=== PATIENT | male | born 1995 | race American Indian/Alaskan Native ===

== ENCOUNTER 2020-12-10 13:06 | Emergency (ER) | payer OTHER ==
[2020-12-10 13:31] VITALS: BP 140/71
--- NOTE | 2020-12-10 14:25 | Emergency Department Report ---
ED Laceration HPI - HPI Chief Complaint: Wound/Laceration Stated Complaint: RT ELBOW LAC Time Seen by Provider: 12/10/20 13:18 Occurred When: Today Severity: mild Tetanus Status: Up to Date (2019) Laceration Symptoms: Yes Pain, No Foreign Body Sensation, No Numbness, No Weakness Other History: This is a 25-year-old male nontoxic, well nourished in appearance, no acute signs of distress presents to the ED with c/o of right eyebrow laceration that occurred today after a physical education at work. Patient denies any loss of consciousness. Patient denies any headache. Patient denies decreased sensation or range of motion. Patient stated bleeding is under control. Denies any numbness, tingling, fever, chills, nausea, vomiting, chest pain, shortness of breath, headache or stiff neck. Patient denies any allergies to significant past medical history. Patient is up-to-date with tetanus as of 2019. ED Review of Systems ROS: Stated complaint: RT ELBOW LAC Other details as noted in HPI Constitutional: denies: chills, fever Eyes: denies: eye pain, eye discharge, vision change ENT: denies: ear pain, throat pain Respiratory: denies: cough, shortness of breath, wheezing Cardiovascular: denies: chest pain, palpitations Endocrine: no symptoms reported Gastrointestinal: denies: abdominal pain, nausea, diarrhea Genitourinary: denies: urgency, dysuria Musculoskeletal: denies: back pain, joint swelling, arthralgia Skin: denies: rash, lesions Neurological: denies: headache, weakness, paresthesias Psychiatric: denies: anxiety, depression Hematological/Lymphatic: denies: easy bleeding, easy bruising ED Past Medical Hx - Past Medical History Previous Medical History?: No - Surgical History Past Surgical History?: No - Social History Smoking Status: Never Smoker Substance Use Type: None - Medications Home Medications: Home Medications Medication Instructions Recorded Confirmed Last Taken Type Naproxen 500 mg PO Q12H PRN #10 tablet 12/10/20 Unknown Rx Sulfamethoxazole/Trimethoprim 1 each PO BID #14 tablet 12/10/20 Unknown Rx [Bactrim DS TAB] Laceration Physical Exam - Exam General: Vital signs noted. No distress. Alert and acting appropriately. Wound Length (cm): 2 (Right eyebrow) Laceration Exam: Yes Normal Distal CMS, No Foreign Body, No Exposed Tendon, Vessel, or Nerve, No Tendon Injury ED Course Vital Signs 12/10/20 13:28 Temperature 98.2 F Pulse Rate 83 Respiratory 18 Rate Blood Pressure 140/71 O2 Sat by Pulse 99 Oximetry - Reevaluation(s) Reevaluation #1: 12/10/20 14:23 Patient is speaking in full sentences with no signs of distress noted. - Laceration /Wound Repair Right Eye Wound Location: face (Right eyebrow) Wound Length (cm): 2 Wound's Depth, Shape: superficial Wound Explored: clean Irrigated w/ Saline (ccs): 30 Betadine Prep?: Yes Volume Anesthetic (ccs): 3 (2% lidocaine plain) Wound Repaired With: sutures Suture Size/Type: 6:0, proline Number of Sutures: 4 Layer Closure?: No Sterile Dressing Applied?: Yes Progress: Under sterile field, I used Betadine to clean the area. I then used 40 mL of normal saline to flush the area. I then used 2% lidocaine plain and injected 3 mL to the wound. I then used a 6-0 Prolene to suture the laceration. Number of stitches 4. I then applied a sterile 4 x 4 with tape. Minimal bleeding noted but is under control. Patient tolerated procedure well with no signs of distress. ED Medical Decision Making - Medical Decision Making This is a 25-year-old male that presents with laceration. Patient is stable and was examined by me. The laceration suturing has been performed and has been performed and patient tolerated well. A sterile dressing has been applied. Patient was educated on proper wound care. Patient is discharged with Bactrim. Patient was instructed to return in 10 days for suture removal. Patient was instructed to refer to Follow-up with a primary care doctor in 3-5 days or if symptoms worsen and continue return to emergency room as soon as possible. At time of discharge, the patient does not seem toxic or ill in appearance. No acute signs of distress noted. Patient agrees to discharge treatment plan of care. No further questions noted by the patient. Critical care attestation.: If time is entered above; I have spent that time in minutes in the direct care of this critically ill patient, excluding procedure time. ED Disposition Clinical Impression: Laceration of right eyebrow Qualifiers: Encounter type: initial encounter Qualified Code(s): S01.111A - Laceration without foreign body of right eyelid and periocular area, initial encounter Disposition: - TO HOME OR SELFCARE Is pt being admited?: No Does the pt Need Aspirin: No Condition: Stable Instructions: Laceration Care, Adult Additional Instructions: Follow-up with a primary care doctor in 3-5 days or if symptoms worsen and continue return to emergency room as soon as possible. Return in 10 days for suture removal. Prescriptions: Sulfamethoxazole/Trimethoprim [Bactrim DS TAB] 1 each PO BID #14 tablet Naproxen 500 mg PO Q12H PRN #10 tablet PRN Reason: Pain , Severe (7-10) Referrals: PRIMARY CAREMD [Referring] - 3-5 Days AROLDO GRIFFITH MD [Staff Physician] - 3-5 Days Forms: Work/School Release Form(ED) Time of Disposition: 14:25
== END 2020-12-10 14:54 | disposition home or self-care (01) ==
LOC: ED 13:06
DX: S01.111A Laceration without foreign body of right eyelid and periocular area, initial encounter (principal); Z79.899 Other long term (current) drug therapy; X58.XXXA Exposure to other specified factors, initial encounter; Y93.89 Activity, other specified; Y92.89 Other specified places as the place of occurrence of the external cause; Y99.8 Other external cause status
CPT/HCPCS: 99283